=== PATIENT | male | born 1985 | race Two or more races ===

== ENCOUNTER → 2019-12-15 | Outpatient (CLI) | payer OTHER | END | disposition home or self-care (01) | LOC: OFIC 805 13:45 | PROVIDERS: ATTEND Otolaryngology Otology & Neurotology | DX: H93.13 Tinnitus, bilateral (principal); H61.23 Impacted cerumen, bilateral ==

== ENCOUNTER → 2020-07-07 11:27 | Outpatient (CLI) | payer OTHER | END | disposition home or self-care (01) | LOC: LAB 11:27 | PROVIDERS: ATTEND Orthopaedic Surgery | DX: E55.9 Vitamin D deficiency, unspecified (principal); M85.89 Other specified disorders of bone density and structure, multiple sites ==

== ENCOUNTER 2020-10-24 16:58 | Emergency (ER) | payer OTHER ==
[~2020-10-24] VITALS: Ht 165.1 cm; Wt 44.5 kg
[2020-10-24] MEDS ORDERED: CORTISPORIN EAR10 M1 OPHT (19:34)
[2020-10-24] MEDS ORDERED: CORTISPORIN EAR10 M1 OT (19:37)
== END 2020-10-24 20:11 | disposition home or self-care (01) ==
LOC: ER 16:58
DX: H60.91 Unspecified otitis externa, right ear (principal)

== ENCOUNTER 2022-04-06 15:56 | Outpatient (CLI) | payer OTHER ==
[~2022-04-06 15:56] MED LIST: CORTISPORIN EAR10 M1 OPHT; CORTISPORIN EAR10 M1 OT
== END 2022-04-06 16:03 | disposition home or self-care (01) ==
LOC: RAD 15:56
PROVIDERS: ATTEND Physical Medicine & Rehabilitation
DX: M19.041 Primary osteoarthritis, right hand (principal)

== ENCOUNTER 2023-11-12 07:32 | Emergency (ER) | payer OTHER ==
[~2023-11-12] VITALS: Ht 152.4 cm; Wt 45.4 kg
[~2023-11-12 07:32] MED LIST changes: +GABAPENTIN300 M2 PO; +GABAPENTIN400 MG PO
[2023-11-12] MEDS ORDERED: NORFLEX100MG PO (08:23)
[2023-11-12] MEDS ORDERED: ORPHENADRINE CITRATE 30 MG/ML AMPUL IM ONE (08:30)
[2023-11-12] MEDS ORDERED: KETOROLAC TROMETHAMINE 60 MG VIAL IM ONE (08:30)
== END 2023-11-12 09:00 | disposition home or self-care (01) ==
LOC: ER 07:33
DX: M62.838 Other muscle spasm (principal)